=== PATIENT | male | born 1965 | race Caucasian/White ===

== ENCOUNTER 2017-10-02 12:55 | Emergency (ER) | payer MEDICAID ==
[~2017-10-02] VITALS: Ht 170.2 cm; Wt 76.3 kg
[2017-10-02 13:05] VITALS: BP 129/89
[2017-10-02] MEDS ORDERED: LIDOCAINE 1%, 20ML ONE (13:54)
[2017-10-02] MEDS ORDERED: LIDOCAINE 1%, 20ML INFIL ONE (14:00)
[2017-10-02] MEDS ORDERED: BACITRACIN ZINC OINT 500U/GM, 0.9 GM ONE (14:41)
== END 2017-10-02 15:10 | disposition home or self-care (01) ==
LOC: ED 15:00
DX: S67.190A Crushing injury of right index finger, initial encounter (principal); X58.XXXA Exposure to other specified factors, initial encounter; Y93.89 Activity, other specified; Y92.89 Other specified places as the place of occurrence of the external cause; Y99.8 Other external cause status
CPT/HCPCS: 64450; 99284

== ENCOUNTER 2017-11-17 19:32 | Emergency (ER) | payer MEDICAID ==
[~2017-11-17] VITALS: Ht 170.2 cm; Wt 74.6 kg
[2017-11-17 19:33] VITALS: BP 142/86
== END 2017-11-17 20:52 | disposition home or self-care (01) ==
LOC: ED 20:46
DX: L03.012 Cellulitis of left finger (principal); L02.511 Cutaneous abscess of right hand; Z87.891 Personal history of nicotine dependence
CPT/HCPCS: 10060; 99284